=== PATIENT | male | born 1995 | race African-American/Black ===

== ENCOUNTER 2017-08-23 23:23 | Emergency (ER) | payer OTHER ==
[~2017-08-23] VITALS: Ht 172.7 cm; Wt 60.9 kg
[2017-08-23 23:28] VITALS: Ht 172.7 cm; Wt 60.9 kg
[2017-08-24 02:58] LABS: ALBUMIN 4.9 g/dl (3.3-4.9); ALBUMIN/GLOBULIN RATIO 1.44; CALCIUM 10.4 mg/dl (8.4-10.2); CREATININE 1.07 mg/dl (0.61-1.24); POTASSIUM 3.8 mmol/L (3.5-5.1); TOTAL PROTEIN 8.3 g/dl (6.1-8.1)
[2017-08-24 03:28] LABS: BASOPHILS % 0.3 % (0.0-2.0); EOSINOPHILS % 0.3 % (0.0-7.0); HEMATOCRIT 43.5 % (42.0-52.0); HEMOGLOBIN 14.7 g/dl (14.0-18.0); LYMPHOCYTES # 2.4 10^3/ul (0.8-2.9); LYMPHOCYTES % 24.3 % (15.0-51.0); MEAN CORPUSCULAR HEMOGLOBIN 27.6 pg (29.0-33.0); MEAN CORPUSCULAR HGB CONC 33.8 g/dl (32.0-37.0); MEAN CORPUSCULAR VOLUME 81.6 fl (82.0-101.0); MEAN PLATELET VOLUME 12.1 fl (7.4-10.4); MONOCYTE # 0.7 10^3/ul (0.3-0.9); MONOCYTES % 7.4 % (0.0-11.0); NEUTROPHIL # 6.6 10^3/ul (1.6-7.5); NEUTROPHILS % 67.4 % (39.0-77.0); PLATELET COUNT 228 10^3/UL (140-415); RED BLOOD COUNT 5.33 10^6/ul (4.70-6.10); RED CELL DISTRIBUTION WIDTH 12.7 % (11.5-14.5); WHITE BLOOD COUNT 9.7 10^3/ul (4.8-10.8)
[2017-08-24 04:06] LABS: ADD UMIC YES; UR CLARITY CLEAR (CLEAR); UR COLOR LT. YELLOW (YELLOW)
[2017-08-24 04:07] LABS: UR BILIRUBIN (Dip) NEGATIVE (NEGATIVE); UR BLOOD (Dip) NEGATIVE (NEGATIVE); UR GLUCOSE (Dip) NEGATIVE (NEGATIVE); UR KETONES (Dip) TRACE mg/dL (NEGATIVE); UR LEUKOCYTE ESTERASE (Dip) NEGATIVE Leu/ul (NEGATIVE); UR NITRITE (Dip) NEGATIVE (NEGATIVE); UR TOTAL PROTEIN (Dip) TRACE mg/dl (NEGATIVE); UR UROBILINOGEN (Dip) 0.2 E.U./dL mg/dL (NEGATIVE)
[2017-08-24] MEDS ORDERED: IBUP-1542 PO (04:17)
[2017-08-24 04:58] VITALS: BP 142/75; PULSE 77; RESP 22; TEMP 99
--- NOTE | 2017-08-25 11:11 | ERD ---
ER Documentation Chief Complaint Chief Complaint weakness x 2 days HPI This is a 22-year-old male that is otherwise healthy complaining of feeling very tired over the last 2 days. Patient states that he feels weak and feels as if he does not want to do anything. Patient denies any cough or cold symptoms, he denies any fevers or chills. He denies any abdominal pain, nausea , vomiting, diarrhea. He denies any chest pain, shortness of breath or dizziness. Patient denies feeling depressed or having any suicidal ideations. He smokes marijuana every day. ROS 12 point review of systems was done, all negative except per HPI. Medications Home Meds Active Scripts Ibuprofen* (Motrin*) 600 Mg Tab, 600 MG PO Q6, #30 TAB Prov:TANA ESPAÑA 08/24/17 PMhx/Soc Medical and Surgical Hx: pt denies Medical Hx, pt denies Surgical Hx Hx Alcohol Use: No Hx Substance Use: No Hx Tobacco Use: No Smoking Status: Never smoker Physical Exam Vitals Vital Signs Date Time Temp Pulse Resp B/P Pulse Ox O2 Delivery O2 Flow Rate FiO2 08/24/17 04:58 99.0 77 22 142/75 100 Room Air 08/23/17 23:28 98.2 78 20 144/96 97 Physical Exam GENERAL: The patient is well developed and appropriate for usual state of health , in no apparent distress. HEENT: Atraumatic. Conjunctivae are pink. Pupils equal, round, and reactive to light. Extraocular muscles are grossly intact. Bilateral tympanic membranes are clear with no evidence of erythema, bulging or perforation. No sinus tenderness. NECK: C-spine is soft and supple. There is no cervical lymphadenopathy. CHEST: Clear to auscultation bilaterally. There are no rales, wheezes or rhonchi. HEART: Regular rate and rhythm. No murmurs, clicks, rubs or gallops. EXTREMITIES: Equal pulses bilaterally. There is no peripheral clubbing, cyanosis or edema. No focal swelling or erythema. Full range of motion. Grossly neurovascularly intact. NEURO: Alert and oriented. Cranial nerves II through XII are intact. Motor strength in all 4 extremities with 5/5 strength. Sensation grossly intact. Normal speech and gait. Negative Rhomberg. +2 DTRs. SKIN: There is no apparent rash or petechia. The skin is warm and dry. Result Diagram: 08/24/1720908/24/17 021 Results 24 hrs Laboratory Tests Test 08/24/17 02:10 White Blood Count 9.710^3/ul Red Blood Count 5.3310^6/ul Hemoglobin 14.7g/dl Hematocrit 43.5% Mean Corpuscular Volume 81.6fl Mean Corpuscular Hemoglobin 27.6pg Mean Corpuscular Hemoglobin Concent 33.8g/dl Red Cell Distribution Width 12.7% Platelet Count 38443^3/UL Mean Platelet Volume 12.1fl Neutrophils % 67.4% Lymphocytes % 24.3% Monocytes % 7.4% Eosinophils % 0.3% Basophils % 0.3% Nucleated Red Blood Cells % 0.0/100WBC Neutrophils # 6.610^3/ul Lymphocytes # 2.410^3/ul Monocytes # 0.710^3/ul Eosinophils # 0.010^3/ul Basophils # 0.010^3/ul Nucleated Red Blood Cells # 0.010^3/ul Urine Color LT. YELLOW Urine Clarity CLEAR Urine pH 5.0 Urine Specific [place] 1.020 Urine Ketones TRACEmg/dL Urine Nitrite NEGATIVEmg/dL Urine Bilirubin NEGATIVEmg/dL Urine Urobilinogen 0.2 E.U./dLmg/dL Urine Leukocyte Esterase NEGATIVELeu/ul Urine Microscopic WBC 0-2/HPF Urine Hemoglobin NEGATIVEmg/dL Urine Glucose NEGATIVEmg/dL Urine Total Protein TRACEmg/dl Sodium Level 142mmol/L Potassium Level 3.8mmol/L Chloride Level 104mmol/L Carbon Dioxide Level 26mmol/L Anion Gap 16 Blood Urea Nitrogen 16mg/dl Creatinine 1.07mg/dl Glucose Level 92mg/dl Calcium Level 10.4mg/dl Total Bilirubin 1.0mg/dl Direct Bilirubin 0.00mg/dl Indirect Bilirubin 1.0mg/dl Aspartate Amino Transf (AST/SGOT) 30IU/L Alanine Aminotransferase (ALT/SGPT) 49IU/L Alkaline Phosphatase 89IU/L Total Protein 8.3g/dl Albumin 4.9g/dl Globulin 3.40g/dl Albumin/Globulin Ratio 1.44 Procedures/MDM EKG was done 69bpm no ST elevation or t wave inversion This is an otherwise healthy 22-year-old male presents to the ER complaining of "weakness" blood work was negative for leukocytosis, anemia or any electrolyte abnormality. His EKG was normal with no evidence of cardiac etiology. Etiology of patient's fatigue is unknown at this time, however he is afebrile and well-appearing with a normal physical examination suspicion for life- threatening disease at this time is low. To follow-up with his primary care doctor within 1-2 days or return to ER sooner if symptoms worsen. My medical decision making shared with the patient understands and agrees with plan. Departure Diagnosis: Primary Impression: Fatigue Condition: Stable Patient Instructions: Weakness, Unk Cause Additional Instructions: Call your primary care doctor TOMORROW for an appointment during the next 1-2 days.See the doctor sooner or return here if your condition worsens before your appointment time. TANA ESPAÑA Aug 25, 2017 11:11
== END 2017-08-24 05:00 | disposition home or self-care (01) ==
LOC: FTE 23:23
DX: R53.83 Other fatigue (principal)
CPT/HCPCS: 80053; 81001; 85025; 93005; Z7502

== ENCOUNTER 2018-09-27 20:36 | Emergency (ER) | payer OTHER ==
[~2018-09-27] VITALS: Ht 177.8 cm; Wt 65.9 kg
[~2018-09-27 20:36] MED LIST: IBUP-1542 PO
[2018-09-27 20:43] VITALS: Ht 177.8 cm; Wt 65.9 kg
--- NOTE | 2018-09-27 22:12 | ERD ---
ER Documentation Chief Complaint Chief Complaint C/O LT CHEST PAIN X3 WEEKS HPI This is a 23-year-old previously healthy male who presents for chest pain for 3 weeks. The patient purchased 45 pound dumbbells a proximally a month ago and started lifting weights. The patient describes soreness after his first sessio n, but no significant issues. However, a few days later, the patient was working out again and he noticed the pain. The patient has had the pain since then. Is been waxing and waning in nature. He is unsure if it is associated with movement. It is not improved when sitting up or sitting forward. The patient has not been sick at all recently. He denies a cough. He denies any shortness of breath. He denies any pleuritic pain. He denies any diaphoresis. He has not been lightheaded or dizzy. He has not had any nausea or vomiting. The patient's mother reportedly had a heart attack in her late 40s. The patient denies fever or chills. The patient has had no headache or vision changes. The patient does not endorse neck or back pain. The patient denies abdominal pain. The patient denies changes to bowel movements or urination. The patient has had no focal deficits. The patient has had no weakness or numbness or tingling to the face or extremities. ROS All systems reviewed and are negative except as per history of present illness. Medications Home Meds Active Scripts Ibuprofen* (Motrin*) 600 Mg Tab, 600 MG PO Q6, #30 TAB Prov:TANA ESPAÑA 08/24/17 PMhx/Soc Medical and Surgical Hx: pt denies Medical Hx, pt denies Surgical Hx History of Surgery: No Hx Neurological Disorder: No Hx Respiratory Disorders: No Hx Cardiac Disorders: No Hx Psychiatric Problems: No Hx Miscellaneous Medical Probl: No Hx Alcohol Use: No Hx Substance Use: No Hx Tobacco Use: No Smoking Status: Never smoker FmHx Family History: No diabetes Physical Exam Vitals Vital Signs Date Temp Pulse Resp B/P (MAP) Pulse Ox O2 O2 Flow FiO2 Time Delivery Rate 09/27/18 97.2 78 18 145/74 100 20:43 (97) Physical Exam Const: No apparent distress, well-developed, well-nourished Head: Normocephalic, Atraumatic Eyes: Normal Conjunctiva. Extraocular movements intact. Pupils equal, round and reactive to light ENT: Normal External Ears, Nose and Mouth. Neck: Full range of motion. No meningismus. Resp: Clear to auscultation bilaterally, No wheezes, rales or rhonchi Cardio: Regular rate and rhythm. No murmurs, rubs or gallops Abd: Soft, non distended. Mild palpable reproducible left-sided chest tenderness. Normal bowel sounds Skin: No petechiae or rashes Back: No midline tenderness. No CVA tenderness Ext: No cyanosis, or edema Neur: Awake and alert, oriented 4. Cranial nerves intact. No facial droop. Normal strength, sensation and coordination. Psych: Normal Mood and Affect Procedures/MDM MDM The patient's presentation warrants further investigation. Previous medical records, if available, were reviewed. EKG EKG read by me: Rate/Rhythm: Regular rate and rhythm at a rate of 68 bpm with a sinus arrhythmia Intervals: Normal Barry: Normal Impression: LVH with early repolarization, likely normal variant. No ST elevations, low suspicion for cardiac ischemia, low suspicion for pericarditis. Mild sinus arrhythmia. IMAGING Imaging and Radiology interpretation reviewed. CXR FINDINGS: The heart and mediastinum are within normal limits. The lungs are clear. There is no pleural effusion or pneumothorax. IMPRESSION: No acute disease. Electronically viewed and signed by .Jean Carlos Burton MD, on 09/27/2018 21:51 TREATMENT/DISPOSITION The patient presents with reproducible chest pain that started after he started lifting weights. I do feel that a musculoskeletal etiology is likely. Costochondritis is a possibility. The patient's EKG is reassuring. There is evidence of LVH, which can be a normal variant. I do not see evidence of pericarditis. I have low suspicion for acute coronary syndrome. The patient's chest xray does not reveal pneumonia or pneumothorax or pleural effusions or pulmonary edema. She does not have a widened mediastinum and does not have signs or symptoms concerning for thoracic aortic aneurysm or dissection. The patient does not have pneumomediastinum or signs concerning for esophageal tear or rupture. The patient has no clinical or radiographic signs of pericardial effusion or tamponade. The patient does not have pneumoperitoneum and I have decreased suspicion of viscus perforation as possible referred pain. The patient does not have a history of heart failure and I have low suspicion for this. The patient does not have a diagnosis of COPD and is not wheezing today. The patient is not tachypneic or hypoxic. The patient is breathing comfortably and without pleuritic pain. The patient is not on hormonal therapy. The patient has no history of clotting or bleeding disorders. The patient has no calf tenderness. The patient has had no hemoptysis. I have decreased suspicion for PE. The patient was offered a dose of Toradol but declined. No emergent diagnoses were identified. At this time, I feel that the patient stable for discharge. The patient was instructed to follow-up with a primary care physician in 1-3 days. The patient will be given strict precautions with which to return to the emergency department. Prescriptions: Ibuprofen The patient's blood pressure was elevated at greater than 120/80 while in the emergency department. The patient was otherwise stable with no evidence of hypertensive urgency or emergency. The patient does not require admission for blood pressure control. I have discussed with the patient the risks of h ypertension. I have instructed the patient to return to the ER for any new or worsening symptoms including chest pain, shortness of breath, headache, blurred vision, confusion, nausea, vomiting or LOC. I have advised the patient to follow up with the primary care physician for outpatient monitoring and treatment for hypertension in 1-3 days. Disclaimer: Inadvertent spelling and grammatical errors are likely due to EHR/dictation software use and do not reflect on the overall quality of patient care. Note that the electronic time recorded on this note does not necessarily reflect the actual time of the patient encounter. Departure Diagnosis: Primary Impression: Chest wall pain Condition: MARY Fish MD Sep 27, 2018 22:12
[2018-09-27] MEDS ORDERED: IBUP-1542 PO (22:27)
[2018-09-27 22:41] VITALS: BP 120/80; PULSE 70; RESP 18
== END 2018-09-27 22:42 | disposition home or self-care (01) ==
LOC: E/R 20:36
DX: R07.9 Chest pain, unspecified (principal)
CPT/HCPCS: 71045; 93005; Z7502